=== PATIENT | male | born 1975 | race Hispanic/Latino ===

== ENCOUNTER 2018-07-24 16:18 | Emergency (ER) | payer SELFPAY ==
--- NOTE | 2018-07-24 16:57 | Emergency Department Report ---
Chief Complaint: Back Pain/Injury Stated Complaint: SEVERE BACK PAIN Time Seen by Provider: 07/24/18 16:48 - HPI History of Present Illness: PMH CHRONES DISEASE OFF MEDS DUE TO EXPENSE MRSA INFECTION IV DRUG USE- LAST TIME EARLIER TODAY HX BOWEL OBSTRUCTIONS/ABSCESSES - ROS Review of Systems: CO SEVERE LOW BACK PAIN IN CONTEXT IV DRUG ABUSE - Exam Vital Signs: Vital Signs 07/24/18 16:29 Temperature 97.3 F L Pulse Rate 90 Respiratory 20 Rate Blood Pressure 111/72 O2 Sat by Pulse 98 Oximetry Physical Exam: LAYING IN POSITIONS WRITING IN PAIN KNEES PULLED UP TO ABD AFEBRILE MOTHER AT BEDSIDE MSE screening note: Focused history and physical exam performed. Due to findings the following was ordered: [facility] LABS TO MAIN ED FOR EVAL GIVEN HEROIN USE AND ACUTE ONSET BACK PAIN - WITH SIGNIFICANT MEDICAL HISTORY ED Disposition for MSE Condition: Stable
[2018-07-24] MEDS ORDERED: TORADOL IM ONE (17:08)
--- NOTE | 2018-07-24 17:13 | Emergency Department Report ---
ED Back Pain/Injury HPI - General Chief Complaint: Back Pain/Injury Stated Complaint: SEVERE BACK PAIN Time Seen by Provider: 07/24/18 16:48 Source: patient Limitations: No Limitations - History of Present Illness Initial Comments: Patient is 42 years old male with history of Crohn's disease, heroine abuse. Patient presented to the ER complaining of lower back pain that started all of a sudden today while he was riding his car. Patient rated his pain as 6 out of 10, sharp was no radiation. Patient denied any recent injury, fever, nausea or vomiting. MD Complaint: back pain -: Sudden Similar Symptoms Previously: Yes Place: street Severity: moderate Severity scale (0 -10): 6 Quality: sharp Worsens With: none Associated Symptoms: denies other symptoms - Related Data Allergies Allergy/AdvReac Type Severity Reaction Status Date / Time amoxicillin Allergy Hives Verified 07/24/18 16:31 ED Review of Systems ROS: Stated complaint: SEVERE BACK PAIN Other details as noted in HPI Comment: All other systems reviewed and negative Constitutional: denies: chills, fever Respiratory: denies: cough, orthopnea, shortness of breath, SOB with exertion, SOB at rest, wheezing Cardiovascular: denies: chest pain, palpitations Gastrointestinal: denies: abdominal pain, nausea, vomiting, diarrhea, constipation, hematemesis, melena, hematochezia Musculoskeletal: back pain. denies: joint swelling, arthralgia Skin: denies: rash Neurological: denies: headache, weakness, numbness, paresthesias, confusion, abnormal gait ED Past Medical Hx - Past Medical History Previous Medical History?: Yes Additional medical history: Chrohn's disease, heroin use - Surgical History Past Surgical History?: No - Social History Smoking Status: Current Every Day Smoker Substance Use Type: Heroin ED Physical Exam - General Limitations: No Limitations General appearance: alert, in no apparent distress - Head Head exam: Present: atraumatic, normocephalic, normal inspection - Eye Eye exam: Present: normal appearance - ENT ENT exam: Present: normal exam, normal orophraynx, mucous membranes moist - Neck Neck exam: Present: normal inspection, full ROM. Absent: tenderness, meningismus, lymphadenopathy, thyromegaly - Respiratory Respiratory exam: Present: normal lung sounds bilaterally - Cardiovascular Cardiovascular Exam: Present: regular rate, normal rhythm, normal heart sounds - GI/Abdominal GI/Abdominal exam: Present: soft, normal bowel sounds. Absent: distended, tenderness, guarding, rebound, rigid, organomegaly, mass, bruit, pulsatile mass, hernia - Extremities Exam Extremities exam: Present: normal inspection, full ROM, normal capillary refill. Absent: pedal edema, calf tenderness - Back Exam Back exam: Present: normal inspection, full ROM. Absent: tenderness, CVA tenderness (R), CVA tenderness (L), muscle spasm, paraspinal tenderness, vertebral tenderness - Neurological Exam Neurological exam: Present: alert, oriented X3, CN II-XII intact, normal gait, reflexes normal - Skin Skin exam: Present: warm, intact, normal color ED Course Vital Signs 07/24/18 07/24/18 07/24/18 16:29 17:15 17:20 Temperature 97.3 F L Pulse Rate 90 Respiratory 20 16 16 Rate Blood Pressure 111/72 Blood Pressure [Right] O2 Sat by Pulse 98 98 Oximetry 07/24/18 19:16 Temperature 98.5 F Pulse Rate 102 H Respiratory 15 Rate Blood Pressure Blood Pressure 94/56 [Right] O2 Sat by Pulse 99 Oximetry ED Medical Decision Making - Lab Data Result diagrams: 07/24/18 17:20 07/24/18 17:20 - Radiology Data Radiology results: report reviewed CT abdomen and pelvis is unremarkable. - Medical Decision Making Patient is 42 years old male with history of Crohn's disease, heroine abuse. Patient presented to the ER complaining of lower back pain that started all of a sudden today while he was riding his car. Patient rated his pain as 6 out of 10, sharp was no radiation. Patient denied any recent injury, fever, nausea or vomiting. Patient stated that he is feeling much better. I advised the patient to follow- up with his primary care physician for further management and to return to the ER if his symptoms return. Critical care attestation.: If time is entered above; I have spent that time in minutes in the direct care of this critically ill patient, excluding procedure time. ED Disposition Clinical Impression: Back pain, Abdominal pain Disposition: TO HOME OR SELFCARE Is pt being admited?: No Condition: Stable Instructions: Acute Low Back Pain (ED) Referrals: SERGE MENSAH MD [Primary Care Provider] - 3-[address] [facility] [Provider Group] - 3-5 Days
[2018-07-24 17:32] LABS: Basophils % (Auto) 0.3 % (0.0-1.8); Eosinophils % (Auto) 0.6 % (0.0-4.3); Hematocrit 38.9 % (35.5-45.6); Hemoglobin 13.2 gm/dl (11.8-15.2); Lymphocytes # (Auto) 0.5 K/mm3 (1.2-5.4); Mean Corpuscular HGB Conc 34 % (32-34); Mean Corpuscular Volume 86 fl (84-94); Monocytes # (Auto) 0.1 K/mm3 (0.0-0.8); Platelet Count 213 K/mm3 (140-440); Red Blood Count 4.53 M/mm3 (3.65-5.03); Red Cell Distribution Width 17.9 % (13.2-15.2)
[2018-07-24 17:53] LABS: Alanine Aminotransferase 35 units/L (7-56); Albumin 4.1 g/dL (3.9-5); BUN/Creatinine Ratio 23; Blood Urea Nitrogen 14 mg/dL (9-20); Calcium 9.3 mg/dL (8.4-10.2); Hemolysis Index 64
[2018-07-24 18:47] LABS: Bacteria,Urine 1+ /HPF (Negative); Bilirubin,Urine NEG (Negative); Blood,Urine NEG (Negative); Color,Urine Yellow (Yellow); Protein,Urine <15 mg/dL mg/dL (Negative); Urobilinogen,Urine < 2.0 mg/dL (<2.0); WBC,Urine < 1.0 /HPF (0.0-6.0)
[2018-07-24 18:49] LABS: Benzodiazepines Screen,Urine PRESUMPTIVE NEGATIVE; Cannabinoid Screen,Urine PRESUMPTIVE NEGATIVE; Cocaine Screen,Urine PRESUMPTIVE NEGATIVE; Methadone Screen,Urine PRESUMPTIVE NEGATIVE; Opiate Screen,Urine PRESUMPTIVE NEGATIVE
--- NOTE | 2018-07-24 18:55 | Cat Scan Report ---
FINAL REPORT PROCEDURE: CT ABDOMEN PELVIS WO CON TECHNIQUE: Computerized axial tomography of the abdomen and pelvis was performed without intravenous contrast. This study is performed without intravascular contrast material and its sensitivity for ab dominal and pelvic pathology, including neoplasms, inflammation, abscess, free fluid, thrombosis, art erial dissection and infarction, is reduced compared with a contrast enhanced study. HISTORY: ABDOMINAL PAIN/Flank pain COMPARISON: No prior studies are available for comparison. FINDINGS: Visualized lower thorax: No significant abnormality. Liver: Prominent liver size. Spleen: Prominent spleen. Gallbladder and biliary system: Gallbladder is present. Pancreas: Normal. Adrenals: Normal. Kidneys: Normal. GI tract: Appendix is visualized and does not appear inflamed. No bowel obstruction or inflammation i s seen. Lymph nodes and mesentery: Normal. Vasculature: Normal. Bladder: Normal. Reproductive organs: Normal. Peritoneum: No free fluid. Musculoskeletal structures: No significant abnormality. Other: None. IMPRESSION: No acute abnormality is identified. Prominent liver and spleen.
[2018-07-24 19:05] LABS: Amphetamine Screen,Urine PRESUMPTIVE POSITIVE
[2018-07-24 20:14] VITALS: BP 119/90
== END 2018-07-24 20:12 | disposition home or self-care (01) ==
LOC: ED 16:18
DX: M54.5 Low back pain (principal); K50.90 Crohn's disease, unspecified, without complications; F13.10 Sedative, hypnotic or anxiolytic abuse, uncomplicated
CPT/HCPCS: 36415; 74176; 80053; 80307; 81001; 85025; 96372; 99284; J1885

== ENCOUNTER 2018-11-04 06:24 | Inpatient (IN) | payer OTHER ==
[2018-11-04] MEDS ORDERED: ATIVAN IV ONE ×4 (07:43→12:01)
[2018-11-04] MEDS ORDERED: DILAUDID IV ONE ×4 (07:43→15:20)
[2018-11-04] MEDS ORDERED: ZOFRAN IV ONE ×2 (07:44→15:30)
--- NOTE | 2018-11-04 07:52 | Emergency Department Report ---
ED Upper Extremity Inj HPI - General Chief Complaint: Extremity Injury, Upper Stated Complaint: accidental arterial injection Time Seen by Provider: 11/04/18 07:39 Source: patient Mode of arrival: Ambulatory Limitations: No Limitations - History of Present Illness Initial Comments: 42-year-old male with a past medical history of IV drug abuse and Crohn's disease presents to the Hospital complains of significant 10/10 pain to his left arm after injecting himself with Dilaudid. Patient injected 1 mg of IV Dilaudid into the left antecubital vessel. Shortly thereafter he developed 10/10 pain to the entire left arm described as a burning sensation. Patient is moaning and uncomfortable. - Related Data Previous Rx's Medication Instructions Recorded Last Taken Type Cyclobenzaprine HCl [Flexeril 5 MG 5 mg PO TID PRN #21 tab 07/24/18 Unknown Rx TAB] Ketorolac [Toradol] 10 mg PO Q6H PRN #20 tablet 07/24/18 Unknown Rx Allergies Allergy/AdvReac Type Severity Reaction Status Date / Time amoxicillin Allergy Hives Verified 07/24/18 16:31 ED Review of Systems ROS: Stated complaint: accidental arterial injection Other details as noted in HPI Comment: All other systems reviewed and negative ED Past Medical Hx - Past Medical History Previous Medical History?: Yes Additional medical history: Chrohn's disease, heroin use - Surgical History Past Surgical History?: No - Social History Smoking Status: Current Every Day Smoker Substance Use Type: Marijuana - Medications Home Medications: Home Medications Medication Instructions Recorded Confirmed Last Taken Type Cyclobenzaprine HCl [Flexeril 5 MG 5 mg PO TID PRN #21 tab 07/24/18 Unknown Rx TAB] Ketorolac [Toradol] 10 mg PO Q6H PRN #20 tablet 07/24/18 Unknown Rx ED Physical Exam - General Limitations: No Limitations - Other Other exam information: General: No limitations, patient is alert in no acute distress Head exam: Atraumatic, normocephalic Eyes exam: Normal appearance, pupils equal reactive to light, extraocular movements intact ENT: Moist mucous membrane, normal oropharynx Neck exam: Normal inspection, full range of motion, no meningismus nontender Respiratory exam: Clear to auscultation bilateral, no wheezes, rales, crackles Cardiovascular: Normal rate and rhythm, normal heart sounds Abdomen: Soft, nondistended, and nontender, with normal bowel sounds, no rebound, or guarding Extremity: Diffuse needle gomez noted to extremities. Patient has a needle kirk/scar to the antecubital fossa that is nontender without hematoma or pulsatile lesion. 2+ radial and ulnar pulses are present however, patient does have Back: Normal Inspection, full range of motion, no tenderness Neurologic: Alert, oriented x3, cranial nerves intact, no motor or sensory deficit Psychiatric: normal affect, normal mood Skin: Warm, dry, intact ED Course Vital Signs 11/04/18 11/04/18 11/04/18 06:38 07:41 08:20 Temperature 97.5 F L 97.5 F L Pulse Rate 71 71 Respiratory 18 Rate Blood Pressure 138/72 137/88 Blood Pressure 138/72 [Left] O2 Sat by Pulse 98 97 Oximetry 11/04/18 11/04/18 11/04/18 08:21 08:30 09:00 Temperature Pulse Rate 94 H Respiratory Rate Blood Pressure 135/90 135/86 Blood Pressure [Left] O2 Sat by Pulse 92 97 Oximetry 11/04/18 11/04/18 11/04/18 09:41 10:01 10:30 Temperature Pulse Rate Respiratory Rate Blood Pressure 135/86 129/90 129/90 Blood Pressure [Left] O2 Sat by Pulse 99 98 100 Oximetry - Reevaluation(s) Reevaluation #1: 11/04/18 14:45 official report received for additional arterial study. awaiting Dr Gonzalez evaluation. - Consultations Consultation #1: 11/04/18 07:57 case d/w Dr Ricky Gonzalez, rec VL arterial of left extermity/hand with run off 11/04/18 14:24 case re-discussed case with Dr Gonzalez at this time. He has been in communication with vp of technology and I ordered the approriate additional test to evaluate flow to fingers since run off of upper extermity was not an avaible test. I called the radiology multiple times to attempt to get a reading. Official read of repeat study is still pending. I we discussed case with Dr. Gonzalez who suggest that findings can be due to compartment syndrome. He will evaluate patient but states that compartment syndrome is an orthopedic problem. 11/04/18 14:33 Case d/w DR Joni frank, states this does not sound like compartment syndrome given that there is no swelling and compartments are soft on exam. Awaiting vascular assessment to determine if reconsultation of ortho is necessary 11/04/18 14:45 11/04/18 15:24 Dr Gonzalez in ED and spoke to Dr Quinones via phone. Dr Gonzalez consenting pt for OR. Dr Quinones to arrive in about 1 hour ED Medical Decision Making - Lab Data Result diagrams: 11/04/18 07:47 11/04/18 07:47 Lab Results 11/04/18 11/04/18 11/04/18 Range/Units 07:47 07:47 07:47 WBC 8.1 (4.5-11.0) K/mm3 RBC 4.10 (3.65-5.03) M/mm3 Hgb 12.1 (11.8-15.2) gm/dl Hct 35.2 L (35.5-45.6) % MCV 86 (84-94) fl MCH 29 (28-32) pg MCHC 34 (32-34) % RDW 15.4 H (13.2-15.2) % Plt Count 299 (140-440) K/mm3 Lymph % (Auto) 29.9 (13.4-35.0) % [place] % (Auto) 12.0 H (0.0-7.3) % Eos % (Auto) 0.1 (0.0-4.3) % Baso % (Auto) 0.4 (0.0-1.8) % Lymph # 2.4 (1.2-5.4) K/mm3 [place] # 1.0 H (0.0-0.8) K/mm3 Eos # 0.0 (0.0-0.4) K/mm3 Baso # 0.0 (0.0-0.1) K/mm3 Seg Neutrophils % 57.6 (40.0-70.0) % Seg Neutrophils # 4.6 (1.8-7.7) K/mm3 PT 13.5 (12.2-14.9) Sec. INR 0.97 (0.87-1.13) APTT 31.4 (24.2-36.6) Sec. Sodium 135 L (137-145) mmol/L Potassium 4.0 (3.6-5.0) mmol/L Chloride 100.8 (98-107) mmol/L Carbon Dioxide 24 (22-30) mmol/L Anion Gap 14 mmol/L BUN 18 (9-20) mg/dL Creatinine 0.6 L (0.8-1.5) mg/dL Estimated GFR > 60 ml/min BUN/Creatinine Ratio 30 % Glucose 112 H (75-100) mg/dL Calcium 8.9 (8.4-10.2) mg/dL Total Creatine Kinase 43 L (55-170) units/L - Radiology Data Radiology results: report reviewed PROCEDURE: VL ARTERIAL DUPLEX UE LT TECHNIQUE: Nobles scale, color and pulsed Doppler ultrasound with color flow and spectral analysis evaluation of left upper extremity arteries were performed. Pulse volume recordings and brachial indices obtained. HISTORY: left hand pain after IV drug injection COMPARISONS: None currently available. FINDINGS: LEFT EXTREMITY: Proximal subclavian, mid subclavian, distal subclavian, axillary, proximal brachial, distal brachial, proximal ulnar, distal ulna, proximal radial, and distal radial artery veloci ties in cm/sec: 113, 57, 52, 54, 74, 76, 64, 47, 44, and 46. Triphasic flow throughout. IMPRESSION: * No ultrasound evidence for hemodynamically significant stenosis. PROCEDURE: PVR EVALUATION TECHNIQUE: PVR waveforms of the left upper extremity digits were obtained HISTORY: pvr upper extremity digit (left) COMPARISONS: None FINDINGS: Technologist reports technically difficult exam to perform. There is normal waveform in the second digit. There are significantly dampened waveforms in the first, third, and fourth digits. There is mildly dampened waveform of the fifth digit. IMPRESSION: Study may be technically limited, however dampened waveforms as described above suggest decreased blood flow. - Medical Decision Making During Dr. Gonzalez assessment he was able to elicit history the patient injected approximately 20 mL of "diluted" Dilaudid into the left antecubital area. He likely missed the vessels altogether and injected into the deep compartment. Possible concern for compartment syndrome or other deep compartment resulting in pain distally. Plan to take patient to the OR. We requests hospitalist to admit with vascular orthopedic surgical consultation/follow-up - Differential Diagnosis artery, nerve injury, vein injury, compartment syndrome, celluliits Critical Care Time: No Critical care attestation.: If time is entered above; I have spent that time in minutes in the direct care of this critically ill patient, excluding procedure time. ED Disposition Clinical Impression: Left arm pain, Compartment syndrome Disposition: OP ADMIT IP TO THIS HOSP Is pt being admited?: Yes Condition: Stable Time of Disposition: 15:26 (DR Lao/hosp)
[2018-11-04 07:59] LABS: Basophils % (Auto) 0.4 % (0.0-1.8); Eosinophils % (Auto) 0.1 % (0.0-4.3); Hematocrit 35.2 % (35.5-45.6); Hemoglobin 12.1 gm/dl (11.8-15.2); Lymphocytes # (Auto) 2.4 K/mm3 (1.2-5.4); Lymphocytes % (Auto) 29.9 % (13.4-35.0); Mean Corpuscular HGB Conc 34 % (32-34); Mean Corpuscular Volume 86 fl (84-94); Platelet Count 299 K/mm3 (140-440); Red Cell Distribution Width 15.4 % (13.2-15.2)
[2018-11-04 08:09] LABS: INR 0.97 (0.87-1.13)
[2018-11-04 08:10] LABS: Partial Thromboplastin Time 31.4 Sec. (24.2-36.6)
[2018-11-04 08:14] LABS: BUN/Creatinine Ratio 30; Blood Urea Nitrogen 18 mg/dL (9-20); Calcium 8.9 mg/dL (8.4-10.2); Hemolysis Index 5
--- NOTE | 2018-11-04 10:33 | Vascular Lab Report ---
PROCEDURE: VL ARTERIAL DUPLEX UE LT TECHNIQUE: Nobles scale, color and pulsed Doppler ultrasound with color flow and spectral analysis eval uation of left upper extremity arteries were performed. Pulse volume recordings and brachial indices obtained. HISTORY: left hand pain after IV drug injection COMPARISONS: None currently available. FINDINGS: LEFT EXTREMITY: Proximal subclavian, mid subclavian, distal subclavian, axillary, proximal brachial, distal brachial, proximal ulnar, distal ulna, proximal radial, and distal radial artery velocities in cm/sec: 113, 57 , 52, 54, 74, 76, 64, 47, 44, and 46. Triphasic flow throughout. IMPRESSION: * No ultrasound evidence for hemodynamically significant stenosis. This document is electronically signed by Ramesh Pichardo MD., Nov 04 2018 10:31:27 AM ET
--- NOTE | 2018-11-04 14:41 | Vascular Lab Report ---
PROCEDURE: PVR EVALUATION TECHNIQUE: PVR waveforms of the left upper extremity digits were obtained HISTORY: pvr upper extremity digit (left) COMPARISONS: None FINDINGS: Technologist reports technically difficult exam to perform. There is normal waveform in the second digit. There are significantly dampened waveforms in the first , third, and fourth digits. There is mildly dampened waveform of the fifth digit. IMPRESSION: Study may be technically limited, however dampened waveforms as described above suggest decreased blo od flow. This document is electronically signed by Nusrat Murillo MD., Nov 04 2018 02:39:14 PM ET
[2018-11-04] MEDS ORDERED: ZOFRAN ONE (15:28)
--- NOTE | 2018-11-04 15:48 | Consultation ---
History of Present Illness - Reason for Consult Consult date: 11/04/18 Left Hand Ischemia Requesting physician: HARINI VELIZ - History of Present Illness The patient is a 42-year-old male with a history of Crohn's disease who presented to the emergency department after injecting Dilaudid into his left arm. He stated that he believed he injected into his artery. By report on exam the emergency room physician stated he had palpable pulses in his radial and ulnar arteries and called for advice as to which study would provide the most information for diagnosis. I suggested an upper extremity arterial duplex with PPG or finger waveforms. This demonstrated triphasic flow to the wrist and diminished flow to multiple fingers of the left hand. Upon my arrival the patient was resting comfortably but had been given multiple doses of Dilaudid IV. He states that he used a large syringe that he estimated to be 20-30 mL in volume. He states he injected this through a 29-gauge needle. His mother states that he would dilute the Dilaudid prior to injecting however neither the patient nor mother stated with a diluted the Dilaudid with. She states that shortly after injecting the Dilaudid he began complaining of a burning pain at the injection site that radiated down to his hand that became excruciating leading to him presenting to the emergency department. By report when he initially presented to the emergency department his capillary refill was sluggi sh however throughout the day his fingers became more cyanotic. As the patient's fingers became more cyanotic his pain worsened and apparently his motor function diminished secondary to this pain. He denies fever and chills or any other complaints at this time. Past History Past Medical History: other (Crohn's disease). denies: No medical history (Crohn's Syndrome) Social history: IV drug use Family history: other (mother has chronic pain and uses narcotics as well) Medications and Allergies Allergies Allergy/AdvReac Type Severity Reaction Status Date / Time amoxicillin Allergy Hives Verified 07/24/18 16:31 Home Medications Medication Instructions Recorded Confirmed Last Taken Type Cyclobenzaprine HCl [Flexeril 5 MG 5 mg PO TID PRN #21 tab 07/24/18 Unknown Rx TAB] Ketorolac [Toradol] 10 mg PO Q6H PRN #20 tablet 07/24/18 Unknown Rx Review of Systems All systems: negative Exam - Constitutional Vitals: Temp Pulse Resp BP Pulse Ox 97.5 F L 94 H 18 129/90 100 11/04/18 07:41 11/04/18 08:21 11/04/18 07:41 11/04/18 10:30 11/04/18 10:30 General appearance: Present: other (initially sleeping however shortly after exam patient writhing in pain) - Neck Neck: Present: supple - Respiratory Respiratory effort: normal - Cardiovascular Rhythm: regular - Extremities Extremities: pulses intact (palpable radial and ulnar pulses bilaterally) Extremity abnormal: cyanosis (all fingers of the left hand as well as the palm of the hand), tenderness (at the antecubital crease on the left at the injection site, pain at the same site with passive flexion of the wrist) - Abdominal General gastrointestinal: Present: soft Male genitourinary: Present: deferred - Rectal Rectal Exam: deferred - Integumentary Integumentary: Absent: erythema (no evidence of infection or suppurative thrombophlebitis) - Neurologic Neurologic: no focal deficits, moves all extremities Results - Labs CBC & Chem 7: 11/04/18 07:47 11/04/18 07:47 Labs: Abnormal lab results 11/04/18 11/04/18 Range/Units 07:47 07:47 Hct 35.2 L (35.5-45.6) % RDW 15.4 H (13.2-15.2) % [place] % (Auto) 12.0 H (0.0-7.3) % [place] # 1.0 H (0.0-0.8) K/mm3 Sodium 135 L (137-145) mmol/L Creatinine 0.6 L (0.8-1.5) mg/dL Glucose 112 H (75-100) mg/dL Total Creatine Kinase 43 L (55-170) units/L - Imaging and Cardiology Venous US: other (left upper extremity arterial duplex films were reviewed) Assessment and Plan The patient is a 42-year-old male who presented with pain and ischemic changes of his left hand after injecting Dilaudid into his left arm at home. After his workup which included an arterial duplex which demonstrated adequate arterial flow to the level of the wrist however diminished flow to the fingers coupled his physical exam. I believe that the patient likely injected a large volume into the deep volar compartment causing compression of the neurovascular bundle. At this point the patient has been ischemic for approximately 9 hours and we do not have a hand surgeon. We have consulted our orthopedic surgeon who is dealing with another emergency. I feel that transferring the patient at this point we'll only further delay his care and may result in permanent nerve damage. I performed this operation multiple times during training and feel comfortable performing it in this situation. I discussed this with the emergency room physician as well as the patient and his mother. They have exp ressed understanding and agree with the plan. We will proceed to the operating room urgently for left arm superficial and deep volar compartment fasciotomy. With possible fasciotomy of the hand if needed.
[2018-11-04] MEDS ORDERED: PROVENTIL IH PRN (16:16)
[2018-11-04] MEDS ORDERED: TYLENOL PO PRN (16:16)
[2018-11-04] MEDS ORDERED: ZOFRAN IV PRN (16:16)
[2018-11-04] MEDS ORDERED: PERCOCET 5/325 PO PRN (16:16)
[2018-11-04] MEDS ORDERED: SODIUM CHLORIDE FLUSH SYRINGE 10 ML IV PRN (16:16)
--- NOTE | 2018-11-04 16:16 | History and Physical Report ---
History of Present Illness Chief complaint: My arm hurts History of present illness: 42 YO Male with Crohn's Disease, Nicotine Dependence, Polysubstance Abuse presents to ED for evaluation. Pt states that he experienced pain in his left arm shortly after injecting Dilaudid into his arm in an attempt to inject the medication into an artery. Pt states that he has experienced worsening pain and discoloration to his hand. Pt transported to [facility] via private vehicle. Pt seen and evaluated in ED and found to have LUE pain and discoloration to he left hand. Pt found to have symptoms consistent with compartment syndrome. Vascular surgery team consulted, and patient taken urgently to the Operating Room for surgical intervention. Pt denies fever, chills, CP, Palpitations, NVD Trauma, skin rash, or recent ill contacts. No prior admission for review. All listed medication reconciled at time of exam. Past History Past Medical History: other (Crohns Disease, Polysubstance Dependence) Past Surgical History: No surgical history, Other (reviewed) Social history: single, IV drug use Family history: other (mother has chronic pain and uses narcotics as well) Medications and Allergies Allergies Allergy/AdvReac Type Severity Reaction Status Date / Time amoxicillin Allergy Hives Verified 07/24/18 16:31 Home Medications Medication Instructions Recorded Confirmed Last Taken Type Cyclobenzaprine HCl [Flexeril 5 MG 5 mg PO TID PRN #21 tab 07/24/18 11/04/18 Unknown Rx TAB] Ketorolac [Toradol] 10 mg PO Q6H PRN #20 tablet 07/24/18 11/04/18 Unknown Rx Review of Systems Constitutional: no weight loss, no weight gain, no fever, no chills Ears, nose, mouth and throat: no ear pain, no ear discharge, no tinnitis, no decreased hearing, no nose pain Cardiovascular: no chest pain, no orthopnea, no palpitations, no rapid/irregular heart beat, no edema, no syncope, no lightheadedness Respiratory: no cough with sputum, no excessive sputum, no shortness of breath Gastrointestinal: no nausea, no vomiting, no diarrhea, no constipation, no change in bowel habits Genitourinary Male: no hematuria, no flank pain, no discharge, no urinary frequency, no urinary hesitancy Rectal: no pain, no incontinence, no bleeding Musculoskeletal: no neck stiffness, no neck pain, no shooting arm pain, no arm numbness/tingling, no low back pain, no shooting leg pain Integumentary: no rash, no pruritis, no redness, no sores, no wounds Neurological: no head injury, no transient paralysis, no weakness, no parathesias, no tingling Psychiatric: no anxiety, no memory loss, no change in sleep habits, no insomnia, no hypersomnia, no change in appetite, no change in libido, no suicidal ideation, no disorientation Endocrine: no cold intolerance, no heat intolerance, no polyphagia, no excessive thirst, no polyuria, no excessive sweating, no flushing Hematologic/Lymphatic: no easy bruising, no lymphadenopathy, no lymphedema Allergic/Immunologic: no urticaria, no allergic rhinitis, no wheezing Exam - Constitutional Vitals: Temp Pulse Resp BP Pulse Ox 97.5 F L 88 22 146/88 95 11/04/18 07:41 11/04/18 15:57 11/04/18 15:57 11/04/18 15:57 11/04/18 15:57 General appearance: Present: mild distress - EENT Eyes: Present: PERRL ENT: hearing intact, clear oral mucosa - Neck Neck: Present: supple, normal ROM - Respiratory Respiratory effort: normal Respiratory: bilateral: CTA - Cardiovascular Heart Sounds: Present: S1 & S2. Absent: rub, click - Extremities Extremity abnormal: cyanosis, pulses diminished, tenderness, other (LUE/Left Hand) Peripheral Pulses: within normal limits - Abdominal General gastrointestinal: Present: soft, non-tender, non-distended, normal bowel sounds Male genitourinary: Present: normal - Integumentary Integumentary: Present: clear, warm, dry - Musculoskeletal Musculoskeletal: gait normal, strength equal bilaterally - Psychiatric Psychiatric: appropriate mood/affect, intact judgment & insight - Neurologic Neurologic: CNII-XII intact, moves all extremities Results - Labs CBC & Chem 7: 11/04/18 07:47 11/04/18 07:47 Labs: Abnormal lab results 11/04/18 11/04/18 Range/Units 07:47 07:47 Hct 35.2 L (35.5-45.6) % RDW 15.4 H (13.2-15.2) % [place] % (Auto) 12.0 H (0.0-7.3) % [place] # 1.0 H (0.0-0.8) K/mm3 Sodium 135 L (137-145) mmol/L Creatinine 0.6 L (0.8-1.5) mg/dL Glucose 112 H (75-100) mg/dL Total Creatine Kinase 43 L (55-170) units/L Assessment and Plan - Patient Problems (1) Compartment syndrome Current Visit: Yes Status: Acute Qualifiers: Compartment syndrome location: upper extremity Laterality: left Plan to address problem: Vascular surgery consulted, Pt taken to operating room for surgical intervention, pain control, supportive care (2) Nicotine dependence with withdrawal Current Visit: Yes Status: Acute Qualifiers: Nicotine product type: cigarettes Qualified Code(s): F17.213 - Nicotine dependence, cigarettes, with withdrawal Plan to address problem: Smoking cessation counseling, supportive care. (3) Polysubstance abuse Current Visit: Yes Status: Acute Plan to address problem: Supportive care, Outpatient counseling, social work consulted. (4) Left arm pain Current Visit: Yes Status: Acute Plan to address problem: Pain control, supportive care. (5) DVT prophylaxis Current Visit: Yes Status: Acute Plan to address problem: SCD to BLE while in bed, Pt ambulatory.
[2018-11-04] MEDS ORDERED: XYLOCAINE MPF 2% ONE (16:26)
[2018-11-04] MEDS ORDERED: DILAUDID ONE (16:26)
[2018-11-04] MEDS ORDERED: DIPRIVAN 10 MG/ML IV ONE (16:26)
--- NOTE | 2018-11-04 16:47 | Anesthesia Consultation ---
Anesthesia Consult and Med Hx Date of service: 11/04/18 - Airway Anesthetic Teeth Evaluation: Good ROM Head & Neck: Adequate Mental/Hyoid Distance: Adequate Mallampati Class: Class II Intubation Access Assessment: Probably Good - Pre-Operative Health Status ASA Pre-Surgery Classification: ASA3 Proposed Anesthetic Plan: General - Pulmonary Hx Smoking: Yes (current every day smoker) - Cardiovascular System Hx Peripheral Vascular Disease: Yes (Acute ischemia left hand) - Central Nervous System Hx Back Pain: Yes (chronic pain) - Gastrointestinal Hx Ulcer: Yes (Crohn's disease) - Other Systems Hx Substance Use: Yes (IV drug user (heroin, Dilaudid))
--- NOTE | 2018-11-04 16:47 | Anesthesia Day of Surgery ---
Anesthesia Day of Surgery - Day of Surgery Patient Examined: Yes Patient H&P Reviewed: Yes Patient is NPO: Yes
[2018-11-04] MEDS ORDERED: SUBLIMAZE IV PRN (16:52)
[2018-11-04] MEDS ORDERED: NARCAN 0.4 MG/1 ML IV PRN (16:52)
[2018-11-04] MEDS ORDERED: VANCOMYCIN/NS 1 GM/250 ML 1 GM/250 ML BAG IV NR (17:00)
[2018-11-04] MEDS ORDERED: DILAUDID IV PRN (17:00)
[2018-11-04] MEDS ORDERED: NACL 0.45% 1000 ML 1,000 ML IV SCH (17:00)
[2018-11-04] MEDS ORDERED: CLEOCIN 600 MG/50 mL 600 MG/50 ML BAG IV ONE (17:12)
[2018-11-04] MEDS ORDERED: MARCAINE 0.5% INFILTRATI ONE ×2 (17:12→18:09)
[2018-11-04] MEDS ORDERED: NACL 0.9% 1000 ML 2,000 ML ONE (18:23)
--- NOTE | 2018-11-04 18:54 | Operative Report ---
Operative Report Operative Report: Date of Procedure: 11/04/2018 Pre-operative Diagnosis: Left Arm Compartment Syndrome Post-operative Diagnosis: Same Procedure(s): 1. Left Arm 3 Compartment Fasciotomy Surgeon: Ricky Gonzalez M.D. Flattening Machine Operator: None Anesthesia: Gen. Endotracheal Anesthesia EBL: 50 mL Counts: Correct Complications: None Condition: Stable Findings: After opening of the deep volar compartment the hand became pink and warm with Doppler signals at the base of all 5 fingers and easily palpable radial and ulnar pulse into the hand. The brachial artery as well as the radial and ulnar arteries were explored in the forearm and all were found to be free of arterial injuries with palpable pulses within the forearm. Specimen: None Indication: The patient is a 42-year-old male who presented to the emergency department after injecting Dilaudid into his forearm and having excruciating pain. He was thought to have an arterial injury however an arterial duplex with finger waveforms demonstrated that he had triphasic flow within the left upper extremity however he had diminished flow in the fingers with ischemic changes today and. Physical exam was consistent with a brachial artery likely secondary to injection of the Dilaudid into the deep volar compartment. He was therefore given the option of a left forearm fasciotomy. He was given the risk, benefits, and alternative procedures and consented to the procedure. Description of Procedure: The patient was brought to the operating room and laid in supine position. After general endotracheal anesthesia was achieved with left arm was prepped and draped in normal sterile fashion. A lazy S incision was created starting on the medial aspect of the arm coursing across the antecubital crease and down the forearm just proximal to the wrist and carried down to the fasciotomy using a combination of a 10 blade and cautery. Once the fascia was identified it was incised and opened with curved Mayos to open the superficial volar compartment. I identified and opened the fascia of the deep volar compartment and then identified and opened the fascia of the mobile wad. I used Metzenbaums to dissect down to the brachial artery and explore the artery at the antecubital crease and just below the area of injection and there was no evidence of injury to the artery. Additionally I explored the radial artery as well as the on artery and identified no injuries to either artery. All arteries had easily palpable pulses and the radial and ulnar arteries have pulses that were easily traceable onto the palm. I then used the Doppler to evaluate the palmar arch which had multiphasic signals as well as signals that were easily audible at the base of each digit. At this point I then irrigated the wound and use a combination of direct pressure and cautery to achieve hemostasis. Once hemostasis was achieved by use 0.5% Marcaine to anesthetize the wound and then closed the incision in 2 layers using 3-0 Vicryl in a running fashion and the deep dermal layer and shon to close the skin as the muscle was not bulging and the skin was loose. I then dressed it with Telfa, fluffs, and a loose Kerlix roll. The patient tolerated the procedure well. All sponge, needle, and instrument counts were correct. The patient was transported to the recovery area in stable condition.
[2018-11-04] MEDS: PERCOCET 5/325 PO PRN (20:17)
[2018-11-04] MEDS ORDERED: ATIVAN IV PRN (20:24)
[2018-11-04] MEDS: DILAUDID IV PRN (20:30)
[2018-11-04] MEDS ORDERED: SODIUM CHLORIDE FLUSH SYRINGE 10 ML IV SCH (22:00)
[2018-11-05] MEDS: DILAUDID IV PRN ×2 (01:20→09:39)
[2018-11-05] MEDS: PERCOCET 5/325 PO PRN (03:44)
[2018-11-05 06:56] LABS: BUN/Creatinine Ratio 10; Blood Urea Nitrogen 6 mg/dL (9-20); Hemolysis Index 19
[2018-11-05 07:01] LABS: Hematocrit 36.9 % (35.5-45.6); Hemoglobin 12.6 gm/dl (11.8-15.2); Mean Corpuscular HGB Conc 34 % (32-34); Mean Corpuscular Volume 86 fl (84-94); Platelet Count 274 K/mm3 (140-440); Red Blood Count 4.28 M/mm3 (3.65-5.03); Red Cell Distribution Width 15.2 % (13.2-15.2)
[2018-11-05 07:07] LABS: Eosinophils % (Auto) 0.1 % (0.0-4.3); Monocytes % (Auto) 9.9 % (0.0-7.3)
[2018-11-05 07:08] LABS: Basophils % (Auto) 0.6 % (0.0-1.8); Lymphocytes # (Auto) 1.8 K/mm3 (1.2-5.4); Monocytes # (Auto) 0.8 K/mm3 (0.0-0.8)
--- NOTE | 2018-11-05 10:33 | Progress Note ---
Assessment and Plan Assessment and plan: Left arm compartment syndrome. Patient is status post left arm compartment fasciotomy. Continue per vascular surgery. Nicotine dependence with withdrawal. Continue smoking cessation counseling, supportive care. Polysubstance abuse. DVT prophylaxis. History Interval history: No new issues overnight. Hospitalist Physical - Constitutional Vitals: Temp Pulse Resp BP Pulse Ox 99.1 F 89 18 123/79 96 11/05/18 06:00 11/05/18 06:00 11/05/18 06:00 11/05/18 06:00 11/05/18 09:11 General appearance: Present: mild distress - EENT Eyes: Present: PERRL, EOM intact ENT: hearing intact, clear oral mucosa, dentition normal - Neck Neck: Present: supple, normal ROM - Respiratory Respiratory effort: normal Respiratory: bilateral: CTA - Cardiovascular Rhythm: regular Heart Sounds: Present: S1 & S2. Absent: gallop, rub - Extremities Extremities: no ischemia, No edema, Full ROM - Abdominal General gastrointestinal: soft, non-tender, non-distended, normal bowel sounds - Integumentary Integumentary: Present: clear, warm, dry - Neurologic Neurologic: CNII-XII intact, moves all extremities Results - Labs CBC & Chem 7: 11/05/18 06:12 11/05/18 06:12 Labs: Laboratory Last Values WBC 8.4 K/mm3 (4.5-11.0) 11/05/18 06:12 RBC 4.28 M/mm3 (3.65-5.03) 11/05/18 06:12 Hgb 12.6 gm/dl (11.8-15.2) 11/05/18 06:12 Hct 36.9 % (35.5-45.6) 11/05/18 06:12 MCV 86 fl (84-94) 11/05/18 06:12 MCH 30 pg (28-32) 11/05/18 06:12 MCHC 34 % (32-34) 11/05/18 06:12 RDW 15.2 % (13.2-15.2) 11/05/18 06:12 Plt Count 274 K/mm3 (140-440) 11/05/18 06:12 Lymph % (Auto) 22.0 % (13.4-35.0) 11/05/18 06:12 [place] % (Auto) 9.9 % (0.0-7.3) H 11/05/18 06:12 Eos % (Auto) 0.1 % (0.0-4.3) 11/05/18 06:12 Baso % (Auto) 0.6 % (0.0-1.8) 11/05/18 06:12 Lymph # 1.8 K/mm3 (1.2-5.4) 11/05/18 06:12 [place] # 0.8 K/mm3 (0.0-0.8) 11/05/18 06:12 Eos # 0.0 K/mm3 (0.0-0.4) 11/05/18 06:12 Baso # 0.0 K/mm3 (0.0-0.1) 11/05/18 06:12 Add Manual Diff Complete 11/05/18 06:12 Seg Neutrophils % 67.4 % (40.0-70.0) 11/05/18 06:12 Seg Neutrophils # 5.7 K/mm3 (1.8-7.7) 11/05/18 06:12 PT 13.5 Sec. (12.2-14.9) 11/04/18 07:47 INR 0.97 (0.87-1.13) 11/04/18 07:47 APTT 31.4 Sec. (24.2-36.6) 11/04/18 07:47 Sodium 138 mmol/L (137-145) 11/05/18 06:12 Potassium 4.0 mmol/L (3.6-5.0) 11/05/18 06:12 Chloride 101.2 mmol/L (98-107) 11/05/18 06:12 Carbon Dioxide 24 mmol/L (22-30) 11/05/18 06:12 Anion Gap 17 mmol/L 11/05/18 06:12 BUN 6 mg/dL (9-20) L 11/05/18 06:12 Creatinine 0.6 mg/dL (0.8-1.5) L 11/05/18 06:12 Estimated GFR > 60 ml/min 11/05/18 06:12 BUN/Creatinine Ratio 10 % 11/05/18 06:12 Glucose 105 mg/dL (75-100) H 11/05/18 06:12 Calcium 9.0 mg/dL (8.4-10.2) 11/05/18 06:12 Total Creatine Kinase 43 units/L (55-170) L 11/04/18 07:47 Active Medications - Current Medications Current Medications: Generic Name Dose Route Start Last Admin Trade Name Freq PRN Reason Stop Dose Admin Acetaminophen 650 mg 11/04/18 16:16 Tylenol PO Q4H PRN Pain MILD(1-3)/Fever >100.5/GUTIERREZ Albuterol 2.5 mg 11/04/18 16:16 Proventil IH Q4HRT PRN Shortness Of Breath Fentanyl 50 mcg 11/04/18 16:52 Sublimaze IV Q5MIN PRN Pain , Severe (7-10) Hydromorphone HCl 0.25 mg 11/04/18 17:00 11/04/18 19:20 Dilaudid IV 0.25 mg Q10MIN PRN Administration Pain, Moderate (4-6) Hydromorphone HCl 0.5 mg 11/04/18 20:23 11/05/18 09:39 Dilaudid IV 0.5 mg Q4H PRN Administration Pain , Severe (7-10) Sodium Chloride 1,000 mls @ 75 mls/hr 11/04/18 17:00 Nacl 0.45% 1000 Ml IV DIRECT DONTE Lorazepam 0.5 mg 11/04/18 20:24 11/04/18 22:41 Ativan IV 0.5 mg HS PRN Administration Anxiety Naloxone HCl 0.1 mg 11/04/18 16:52 Narcan 0.4 Mg/1 Ml IV Q2MIN PRN Res Rate </= 8 or 02 SAT < 92% Ondansetron HCl 4 mg 11/04/18 16:16 Zofran IV Q8H PRN Nausea And Vomiting Oxycodone/Acetaminophen 2 tab 11/04/18 18:55 11/05/18 03:44 Percocet 5/325 PO 2 tab Q4H PRN Administration Pain, Moderate (4-6) Sodium Chloride 10 ml 11/04/18 22:00 Sodium Chloride Flush Syringe 10 Ml IV BID DONTE Sodium Chloride 10 ml 11/04/18 16:16 Sodium Chloride Flush Syringe 10 Ml IV PRN PRN LINE FLUSH Nutrition/Malnutrition Assess - Dietary Evaluation Nutrition/Malnutrition Findings: Nutrition Notes Start: 11/05/18 09:5 1 Freq: Status: Active Protocol: Document 11/05/18 09:51 KARRI (Rec: 11/05/18 09:55 KARRI SR- [id number]) Nutrition Notes Need for Assessment generated from: records analyst,MST Initial or Follow up Brief Note Other Pertinent Diagnosis Compartment syndrome s/p (L) arm fasciotomy, Crohn's dz, polysubstance dep Current Diet Regular Labs/Tests reviewed Pertinent Medications reviewed Height 5 ft 6 in Weight 67.7 kg [place] Body Weight (kg) 64.54 BMI 24.0 Subjective/Other Information Pt screened for malnutrition risk (wt loss, poor appetite). Per records, pt injected himself in the (L) arm with Dilaudid and began experiencing pain. Burn Absent Trauma Absent Is patient on ventilator? No Is Patient Ambulatory and/or Out of Bed Yes REE-([place]-St. Jeor-ambulatory/OOB) [ 1982.175 [id number]] Calculation Used for Recommendations [place]-St Jeor Additional Notes Pro needs 0.8-1g/k-68g/ day Fluid needs 1ml/kcal Nutrition Intervention Follow-Up By: 11/08/18 Additional Comments F/U: intakes, malnutrition risk assessment
--- NOTE | 2018-11-05 11:22 | Progress Note ---
Assessment and Plan Postoperative day #1 status post left arm 3 compartment fasciotomy the patient's left hand is well-perfused. Would recommend a daily aspirin 81 mg by mouth daily. Follow-up in the office in 2 weeks to have his shon removed. The patient has been instructed to call the office for a follow-up appointment. He has been given discharge instructions and a card with my office information. Subjective Date of service: 11/05/18 Principal diagnosis: Left Arm Compartment Syndrome Interval history: Patient has some left incisional pain however he states the left hand feels significantly better. Some soreness with movement but no other complaints. Objective - Constitutional Vitals: Vital Signs - 12hr 11/05/18 11/05/18 11/05/18 01:20 04:44 06:00 Temperature 99.1 F Pulse Rate 89 Respiratory 20 18 18 Rate Blood Pressure 123/79 [Left] O2 Sat by Pulse 96 Oximetry 11/05/18 09:11 Temperature Pulse Rate Respiratory Rate Blood Pressure [Left] O2 Sat by Pulse 96 Oximetry General appearance: Present: no acute distress - Neck Neck: supple - Cardiovascular Rhythm: regular Extremities: normal temperature, abnormal (left arm incision clean dry and intact without evidence of infection. Palpable radial and ulnar pulses extending onto the palmar arch. Less than 2 second capillary refill in fingers are hyperemic) - Gastrointestinal General gastrointestinal: Present: soft - Labs CBC & Chem 7: 11/05/18 06:12 11/05/18 06:12 Labs: Abnormal lab results 11/05/18 11/05/18 Range/Units 06:12 06:12 [place] % (Auto) 9.9 H (0.0-7.3) % BUN 6 L (9-20) mg/dL Creatinine 0.6 L (0.8-1.5) mg/dL Glucose 105 H (75-100) mg/dL Medications & Allergies - Medications Allergies/Adverse Reactions: Allergies amoxicillin Allergy (Verified 07/24/18 16:31) Hives Home Medications: Home Medications Medication Instructions Recorded Confirmed Last Taken Type Cyclobenzaprine HCl [Flexeril 5 MG 5 mg PO TID PRN #21 tab 07/24/18 11/04/18 Unknown Rx TAB] Ketorolac [Toradol] 10 mg PO Q6H PRN #20 tablet 07/24/18 11/04/18 Unknown Rx Active Medications: Generic Name Dose Route Start Last Admin Trade Name Freq PRN Reason Stop Dose Admin Acetaminophen 650 mg 11/04/18 16:16 Tylenol PO Q4H PRN Pain MILD(1-3)/Fever >100.5/GUTIERREZ Albuterol 2.5 mg 11/04/18 16:16 Proventil IH Q4HRT PRN Shortness Of Breath Fentanyl 50 mcg 11/04/18 16:52 Sublimaze IV Q5MIN PRN Pain , Severe (7-10) Hydromorphone HCl 0.25 mg 11/04/18 17:00 11/04/18 19:20 Dilaudid IV 0.25 mg Q10MIN PRN Administration Pain, Moderate (4-6) Hydromorphone HCl 0.5 mg 11/04/18 20:23 11/05/18 09:39 Dilaudid IV 0.5 mg Q4H PRN Administration Pain , Severe (7-10) Sodium Chloride 1,000 mls @ 75 mls/hr 11/04/18 17:00 Nacl 0.45% 1000 Ml IV DIRECT DONTE Lorazepam 0.5 mg 11/04/18 20:24 11/04/18 22:41 Ativan IV 0.5 mg HS PRN Administration Anxiety Naloxone HCl 0.1 mg 11/04/18 16:52 Narcan 0.4 Mg/1 Ml IV Q2MIN PRN Res Rate </= 8 or 02 SAT < 92% Ondansetron HCl 4 mg 11/04/18 16:16 Zofran IV Q8H PRN Nausea And Vomiting Oxycodone/Acetaminophen 2 tab 11/04/18 18:55 11/05/18 03:44 Percocet 5/325 PO 2 tab Q4H PRN Administration Pain, Moderate (4-6) Sodium Chloride 10 ml 11/04/18 22:00 Sodium Chloride Flush Syringe 10 Ml IV BID DONTE Sodium Chloride 10 ml 11/04/18 16:16 Sodium Chloride Flush Syringe 10 Ml IV PRN PRN LINE FLUSH
[2018-11-05 11:59] VITALS: BP 124/77
[2018-11-05] MEDS ORDERED: HALFPRIN EC PO SCH (12:00)
--- NOTE | 2018-11-05 12:08 | Short Stay Summary ---
Short Stay Documentation Date of service: 11/05/18 - History Past Medical History: other (Crohns Disease, Polysubstance Dependence) Past Surgical History: No surgical history, Other (reviewed) Social history: single, IV drug use - Allergies and Medications Current Medications: Allergies amoxicillin Allergy (Verified 07/24/18 16:31) Hives Home Medications Medication Instructions Recorded Confirmed Last Taken Type Cyclobenzaprine HCl [Flexeril 5 MG 5 mg PO TID PRN #21 tab 07/24/18 11/04/18 Unknown Rx TAB] Ketorolac [Toradol] 10 mg PO Q6H PRN #20 tablet 07/24/18 11/04/18 Unknown Rx Oxycodone HCl/Acetaminophen 1 each PO Q6HR PRN #40 tablet 11/05/18 Unknown Rx [Percocet 7.5/325 mg] Active Medications Acetaminophen (Tylenol) 650 mg PO Q4H PRN PRN Reason: Pain MILD(1-3)/Fever >100.5/GUTIERREZ Albuterol (Proventil) 2.5 mg IH Q4HRT PRN PRN Reason: Shortness Of Breath Aspirin (Halfprin Ec) 81 mg PO QDAY DONTE Fentanyl (Sublimaze) 50 mcg IV Q5MIN PRN PRN Reason: Pain , Severe (7-10) Hydromorphone HCl (Dilaudid) 0.25 mg IV Q10MIN PRN PRN Reason: Pain, Moderate (4-6) Last Admin: 11/04/18 19:20 Dose: 0.25 mg Documented by: Hydromorphone HCl (Dilaudid) 0.5 mg IV Q4H PRN PRN Reason: Pain , Severe (7-10) Last Admin: 11/05/18 09:39 Dose: 0.5 mg Documented by: Sodium Chloride (Nacl 0.45% 1000 Ml) 1,000 mls @ 75 mls/hr IV DIRECT DONTE Lorazepam (Ativan) 0.5 mg IV HS PRN PRN Reason: Anxiety Last Admin: 11/04/18 22:41 Dose: 0.5 mg Documented by: Naloxone HCl (Narcan 0.4 Mg/1 Ml) 0.1 mg IV Q2MIN PRN PRN Reason: Res Rate </= 8 or 02 SAT < 92% Ondansetron HCl (Zofran) 4 mg IV Q8H PRN PRN Reason: Nausea And Vomiting Oxycodone/Acetaminophen (Percocet 5/325) 2 tab PO Q4H PRN PRN Reason: Pain, Moderate (4-6) Last Admin: 11/05/18 03:44 Dose: 2 tab Documented by: Sodium Chloride (Sodium Chloride Flush Syringe 10 Ml) 10 ml IV BID DONTE Sodium Chloride (Sodium Chloride Flush Syringe 10 Ml) 10 ml IV PRN PRN PRN Reason: LINE FLUSH - Physical exam Extremities: normal temperature, abnormal (left arm incision clean dry and intact without evidence of infection. Palpable radial and ulnar pulses extending onto the palmar arch. Less than 2 second capillary refill in fingers are hyperemic) - Disposition Condition at discharge: Stable Disposition: DC-01 TO HOME OR SELFCARE Short Stay Discharge Plan Activity: other (No heavy lifting for until follow up in office) Wound: remove dressing (48 hours), other (After removing dressing, okay to wash the wound with soap and water. Okay to shower and let water run down wound, pat dry with towel, do not soak wound in tubs, pools, lakes, oceans, ponds, etc.) Follow up with: PRIMARY CARE, [Primary Care Provider] - 3-5 Days SERGE CHONG MD [Staff Physician] - 14 Days Prescriptions: Aspirin EC [Aspirin Enteric Coated TAB] 81 mg PO QDAY #90 tablet Oxycodone HCl/Acetaminophen [Percocet 7.5/325 mg] 1 each PO Q6HR PRN #40 tablet PRN Reason: Pain
== END 2018-11-05 13:30 | disposition home or self-care (01) | DRG 501 ==
LOC: ED 06:24 → OR 16:43 → 3B-SURG 16:44
PROVIDERS: ADMIT Internal Medicine; ATTEND Hospitalist
PROC: 0KNB0ZZ Release Left Lower Arm and Wrist Muscle, Open Approach (ICD-10-PCS; principal; 2018-11-04)
PROC: 0KNB0ZZ Release Left Lower Arm and Wrist Muscle, Open Approach (ICD-10-PCS; 2018-11-04)
PROC: 0KNB0ZZ Release Left Lower Arm and Wrist Muscle, Open Approach (ICD-10-PCS; 2018-11-04)
DX: M79.A12 Nontraumatic compartment syndrome of left upper extremity (principal); F11.20 Opioid dependence, uncomplicated; K50.90 Crohn's disease, unspecified, without complications; F17.213 Nicotine dependence, cigarettes, with withdrawal; G89.29 Other chronic pain; M54.9 Dorsalgia, unspecified; Z88.1 Allergy status to other antibiotic agents; Z79.899 Other long term (current) drug therapy; Z71.6 Tobacco abuse counseling; Z71.51 Drug abuse counseling and surveillance of drug abuser
CPT/HCPCS: 36415; 80048; 82550; 85025; 85610; 85730; 93922; 96374; 96375; 96376; G0378; J1170; J2060; J2405; J2704; J3370; J7030

== ENCOUNTER 2018-11-06 21:57 | Emergency (ER) | payer OTHER ==
--- NOTE | 2018-11-06 22:08 | Emergency Department Report ---
Blank Doc - Documentation Documentation: This is a 42-year-old male that presents with left arm numbness and tingling s ensation. Stated has left hand cooler then right. Had a surgery to left arm by a vascular surgeon a few days ago. This initial assessment/diagnostic orders/clinical plan/treatment(s) is/are subject to change based on patient's health status, clinical progression and re- assessment by fellow clinical providers in the ED. Further treatment and workup at subsequent clinical providers discretion. Patient/guardians urged not to elope from the ED as their condition may be serious if not clinically assessed and managed. Initial orders include: 1- Patient sent to MAIN ED for further evaluation and treatment 2- labs
[2018-11-06 22:40] LABS: Basophils % (Auto) 0.2 % (0.0-1.8); Hematocrit 38.4 % (35.5-45.6); Lymphocytes # (Auto) 1.1 K/mm3 (1.2-5.4); Lymphocytes % (Auto) 9.8 % (13.4-35.0); Mean Corpuscular HGB Conc 34 % (32-34); Mean Corpuscular Volume 87 fl (84-94); Monocytes # (Auto) 0.3 K/mm3 (0.0-0.8); Platelet Count 333 K/mm3 (140-440); Red Blood Count 4.45 M/mm3 (3.65-5.03); Red Cell Distribution Width 15.1 % (13.2-15.2)
[2018-11-06 22:52] LABS: Blood Urea Nitrogen 13 mg/dL (9-20); Calcium 9.7 mg/dL (8.4-10.2); Hemolysis Index 5
[2018-11-06 23:06] LABS: BUN/Creatinine Ratio 22
--- NOTE | 2018-11-06 23:25 | Emergency Department Report ---
ED Upper Extremity Inj HPI - General Chief Complaint: Extremity Injury, Upper Stated Complaint: LEFT ARM PAIN/POST SURGERY Time Seen by Provider: 11/06/18 22:05 Source: patient Mode of arrival: Ambulatory Limitations: No Limitations - History of Present Illness Initial Comments: 42-year-old male with a past medical history of Crohn's disease and IV drug abuse presents to the hospital status post fasciotomy with worsening left hand pain and numbness today. I saw patient when he presented on November 04 with left forearm and hand pain after injecting oral Dilaudid that was crushed in diluted in 8 units of water in an insulin syringe into the into left antecubital space (injection volume further clarified during this visit, it was unclear on initial visit). Patient underwent emergent fasciotomy for compartment syndrome and was discharged yesterday. Patient states he was doing better at time of d/c. He now presents stating that he developed left thumb numbness today. Symptoms have progressed to repeat discoloration of hands and pain greatest at the thumb and index finger. Pt is right handed. Patient denies reinjecting the left arm and states instead he injected Dilaudid intramuscular and his glute area. - Related Data Previous Rx's Medication Instructions Recorded Last Taken Type Cyclobenzaprine HCl [Flexeril 5 MG 5 mg PO TID PRN #21 tab 07/24/18 Unknown Rx TAB] Ketorolac [Toradol] 10 mg PO Q6H PRN #20 tablet 07/24/18 Unknown Rx Aspirin EC [Aspirin Enteric Coated 81 mg PO QDAY #90 tablet 11/05/18 Unknown Rx TAB] Oxycodone HCl/Acetaminophen 1 each PO Q6HR PRN #40 tablet 11/05/18 Unknown Rx [Percocet 7.5/325 mg] Allergies Allergy/AdvReac Type Severity Reaction Status Date / Time amoxicillin Allergy Hives Verified 07/24/18 16:31 ED Review of Systems ROS: Stated complaint: LEFT ARM PAIN/POST SURGERY Other details as noted in HPI ED Past Medical Hx - Past Medical History Previous Medical History?: Yes Hx Congestive Heart Failure: No Hx Diabetes: No Hx Seizures: Yes (4 Years ago) Hx Asthma: No Hx COPD: No Additional medical history: Chrohn's disease, heroin use - Surgical History Past Surgical History?: Yes Additional Surgical History: left arm SX - Social History Smoking Status: Current Every Day Smoker Substance Use Type: None, Marijuana - Medications Home Medications: Home Medications Medication Instructions Recorded Confirmed Last Taken Type Cyclobenzaprine HCl [Flexeril 5 MG 5 mg PO TID PRN #21 tab 07/24/18 11/04/18 Unknown Rx TAB] Ketorolac [Toradol] 10 mg PO Q6H PRN #20 tablet 07/24/18 11/04/18 Unknown Rx Aspirin EC [Aspirin Enteric Coated 81 mg PO QDAY #90 tablet 11/05/18 Unknown Rx TAB] Oxycodone HCl/Acetaminophen 1 each PO Q6HR PRN #40 tablet 11/05/18 Unknown Rx [Percocet 7.5/325 mg] ED Physical Exam - General Limitations: No Limitations - Other Other exam information: General: No limitations, patient is alert in no acute distress Head exam: Atraumatic, normocephalic Eyes exam: Normal appearance, pupils equal reactive to light, extraocular movements intact ENT: Moist mucous membrane, normal oropharynx Neck exam: Normal inspection, full range of motion, no meningismus nontender Respiratory exam: Clear to auscultation bilateral, no wheezes, rales, crackles Cardiovascular: Normal rate and rhythm, normal heart sounds Abdomen: Soft, nondistended, and nontender, with normal bowel sounds, no rebound, or guarding Extremity:Pt has blue blotchy discoloration to the palm of his hand and fingers worse at the thumb and index finger. Patient also complaining of pain to all fingers with passive and active movement worse on the thumb and index finger. Patient does not have full range of motion of fingers of the left hand due to pain. Diminished Refill. 2+ radial and ulnar pulse. Back: Normal Inspection, full range of motion, no tenderness Neurologic: Alert, oriented x3, cranial nerves intact, no motor or sensory deficit Psychiatric: normal affect, normal mood Skin: see extremity exam ED Course Vital Signs 11/06/18 22:04 Temperature 98.0 F Pulse Rate 91 H Respiratory 18 Rate Blood Pressure 122/78 O2 Sat by Pulse 98 Oximetry - Consultations Consultation #1: 11/07/18 23:14 Dr Gonzalez Pagefaviola 23:33 Dr Gonzalez Paged 23:43 Dr Ba called since i could not get a hold of Dr Gonzalez 23:50 Dr Ba called back after he spoke to Carlos who recommended transfer to [facility] 23:58 [facility] paged 00:15 Dr Garcia (trauma attending) at [facility] called back and refuses the pt. States the surgeon here that performed the surgery needs to evaluate pt. 11/07/18 00:37 case w/w Dr Johnston occupational therapy asst vascular surgeon for group. He still requests transfer. He was provided number for [facility] transfer service to discuss case with Dr garcia directly 11/07/18 01:02 Received call back from Dr Johnston, Dr Garcia has accepted the pt. Requests that I recall [facility] to arrange transport 11/07/18 01:05 [place] spoke to [facility] transfer service and transport will be arranged to [place] [facility] ER. ED Medical Decision Making - Lab Data Result diagrams: 11/06/18 22:32 11/06/18 22:32 Lab Results 11/06/18 11/06/18 11/06/18 Range/Units 22:32 22:32 22:32 WBC 11.2 H (4.5-11.0) K/mm3 RBC 4.45 (3.65-5.03) M/mm3 Hgb 13.0 (11.8-15.2) gm/dl Hct 38.4 (35.5-45.6) % MCV 87 (84-94) fl MCH 29 (28-32) pg MCHC 34 (32-34) % RDW 15.1 (13.2-15.2) % Plt Count 333 (140-440) K/mm3 Lymph % (Auto) 9.8 L (13.4-35.0) % Terry % (Auto) 3.0 (0.0-7.3) % Eos % (Auto) 0.0 (0.0-4.3) % Baso % (Auto) 0.2 (0.0-1.8) % Lymph # 1.1 L (1.2-5.4) K/mm3 Terry # 0.3 (0.0-0.8) K/mm3 Eos # 0.0 (0.0-0.4) K/mm3 Baso # 0.0 (0.0-0.1) K/mm3 Seg Neutrophils % 87.0 H (40.0-70.0) % Seg Neutrophils # 9.8 H (1.8-7.7) K/mm3 Sodium 135 L (137-145) mmol/L Potassium 4.7 (3.6-5.0) mmol/L Chloride 98.5 (98-107) mmol/L Carbon Dioxide 24 (22-30) mmol/L Anion Gap 17 mmol/L BUN 13 (9-20) mg/dL Creatinine 0.6 L (0.8-1.5) mg/dL Estimated GFR > 60 ml/min BUN/Creatinine Ratio 22 % Glucose 165 H (75-100) mg/dL Calcium 9.7 (8.4-10.2) mg/dL Total Creatine Kinase 228 H (55-170) units/L - Medical Decision Making Recurrent compartment syndrome Case discussed with Dr. Gonzalez's vascular group and transfer recommended After Dr. Johnston vascular surgeon discussion with trauma attending at [facility] patient was accepted for transfer - Differential Diagnosis recurrent compartment syndrome Critical Care Time: No Critical care attestation.: If time is entered above; I have spent that time in minutes in the direct care of this critically ill patient, excluding procedure time. ED Disposition Clinical Impression: Compartment syndrome, Polysubstance abuse, IV drug abuse Disposition: DC/TX-70 ANOTHER TYPE HLTHCARE Is pt being admited?: No Does the pt Need Aspirin: No Condition: Stable Time of Disposition: 01:12 (Transfer to [place] ER)
[2018-11-07 02:06] VITALS: BP 144/77
[2018-11-07] MEDS ORDERED: PERCOCET 5/325 PO ONE (02:14)
== END 2018-11-07 02:39 | disposition other institution (70) ==
LOC: ED 21:57
DX: T79.A12A Traumatic compartment syndrome of left upper extremity, initial encounter (principal); K50.90 Crohn's disease, unspecified, without complications; F17.200 Nicotine dependence, unspecified, uncomplicated; F12.10 Cannabis abuse, uncomplicated; F19.10 Other psychoactive substance abuse, uncomplicated; Z88.1 Allergy status to other antibiotic agents; W23.0XXA Caught, crushed, jammed, or pinched between moving objects, initial encounter
CPT/HCPCS: 36415; 80048; 82550; 85025; 99284

== ENCOUNTER 2019-05-24 17:31 | Emergency (ER) | payer OTHER ==
--- NOTE | 2019-05-24 18:50 | Event Note ---
ED Screening Note Date of service: 05/24/19 Time: 18:48 ED Screening Note: 43 y o male presents to Ed cc of abdominal pain x 1 day, periabdominal pain cc of n/v/d This initial assessment/diagnostic orders/clinical plan/treatment(s) is/are subject to change based on patients health status, clinical progression and re- assessment by fellow clinical providers in the ED. Further treatment and workup at subsequent clinical providers discretion. Patient/guardian urged not to elope from the ED as their condition may be serious if not clinically assessed and managed. Initial orders include: labs, ua
[2019-05-24 18:54] VITALS: BP 133/98
--- NOTE | 2019-05-24 20:10 | Cat Scan Report ---
CT abdomen pelvis wo con INDICATION: MAIN: Abdominal Pain; c/o mid abd pain. TECHNIQUE: All CT scans at this location are performed using CT dose reduction for ALARA by means of automated e xposure control. COMPARISON: 07/24/2018 FINDINGS: Lung bases are clear of acute disease. Liver, gallbladder, spleen, pancreas, kidneys and adrenals are grossly negative on this noncontrast exam Pelvis Small bowel is fluid-filled and moderately distended, and the more distal small bowel is feculent, wi th marked wall thickening and narrowing of the terminal ileum. The entire colon is mostly collapsed. Appendix is normal. No free fluid or free air. IMPRESSION: 1. Marked wall thickening of the terminal ileum, with low-grade small bowel obstruction at this level . In retrospect, the terminal ileum wall thickening was present 10 months ago. This appearance is gabriel y suggestive of inflammatory bowel disease, such as Crohn's. Signer Name: Dilan Cervantes MD Signed: 05/24/2019 8:05 PM Workstation Name: [id number]
[2019-05-24 20:28] LABS: Basophils # (Auto) 0.1 K/mm3 (0.0-0.1); Basophils % (Auto) 0.3 % (0.0-1.8); Eosinophils % (Auto) 0.1 % (0.0-4.3); Hemoglobin 15.1 gm/dl (11.8-15.2); Lymphocytes # (Auto) 1.2 K/mm3 (1.2-5.4); Lymphocytes % (Auto) 7.9 % (13.4-35.0); Mean Corpuscular HGB Conc 33 % (32-34); Mean Corpuscular Volume 87 fl (84-94); Monocytes # (Auto) 0.8 K/mm3 (0.0-0.8); Monocytes % (Auto) 5.2 % (0.0-7.3); Platelet Count 415 K/mm3 (140-440); Red Blood Count 5.29 M/mm3 (3.65-5.03); Red Cell Distribution Width 15.4 % (13.2-15.2)
[2019-05-24 20:50] LABS: Alanine Aminotransferase 19 units/L (7-56); BUN/Creatinine Ratio 17; Blood Urea Nitrogen 12 mg/dL (9-20); Calcium 10.1 mg/dL (8.4-10.2); Hemolysis Index 4
== END 2019-05-25 01:45 | disposition left against medical advice (07) ==
LOC: ED 17:31
DX: R10.9 Unspecified abdominal pain (principal); Z53.21 Procedure and treatment not carried out due to patient leaving prior to being seen by health care provider
CPT/HCPCS: 36415; 74176; 80053; 80320; 83690; 85025; G0480